=== PATIENT | female | born 1975 | race Caucasian/White ===

== ENCOUNTER → 2023-01-12 | Outpatient (CLI) | payer SELFPAY ==
--- NOTE | 2023-01-12 15:45 | RAD_ITS ---
INDICATION: KUB EXAMINATION/TECHNIQUE: X-RAY - XR Abdomen 1 View COMPARISON: None FINDINGS: BOWEL GAS PATTERN: Non-obstructive. No bowel or stomach distention. FREE AIR: Not assessed on a single supine view. ORGANOMEGALY: Not seen. CALCIFICATIONS: Multiple calcifications project over the left mid renal pole measuring 2 to 4 mm. Additional questionable 5 mm stone in the left lower renal pole. Single 3 mm calcification projecting over the right upper renal pole. LOWER CHEST: No acute pathology. BONES AND SOFT TISSUES: No acute pathology. RAD/Abdomen Single View IMPRESSION: Multiple small bilateral renal stones as described above. Electronically Signed: Rinku Camacho MD at 23:21 EDT ,
== END | disposition home or self-care (01) ==
PROVIDERS: Referring Provider Urology; Visit Provider Urology
DX: N20.0 Calculus of kidney (principal)
CPT/HCPCS: 74018

== ENCOUNTER → 2023-01-19 | Outpatient (CLI) | payer SELFPAY | END | disposition home or self-care (01) | LOC: LABSPEC 15:44 | PROVIDERS: Referring Provider Urology; Visit Provider Urology | DX: N39.0 Urinary tract infection, site not specified (principal) | CPT/HCPCS: 87086 ==

== ENCOUNTER 2023-01-25 09:44 | Day surgery (SDC) | payer SELFPAY ==
[2023-01-25 10:51] LABS: Internal QC Validated? YES +Cl - CLEAR BKGD; Pregnancy, Urine Negative Negative
[2023-01-25] MEDS: Lactated Ringers 1,000 ML 15 ML IV (10:58)
[2023-01-25 10:59] VITALS: BP 113/72; PULSE 75; RESP 18; TEMP 36.4; O2SAT 100; BMI 24.4
[2023-01-25] MEDS: Cefazolin 2 GM in 0.9% Normal Saline 100 ML IV (12:38)
--- NOTE | 2023-01-25 12:55 | PCM.OPRPT ---
Problems Associated Problem List Diagnoses (1) Kidney stones: Report of Operation Date of Procedure: 01/25/23 Pre-Operative Diagnosis: Left renal stones Post-Operative Diagnosis: Same Surgery/Procedure Performed:: Left renal extracorporal shockwave lithotripsy Surgeon: Jane Bermudez Type of Anesthesia: General Description of Procedure: The patient is a 47-year-old female with a left renal stone cluster seen on CT scan done for right flank pain. She subsequently passed her right ureteral stones and now presents for definitive management of her remaining left renal stones. Informed consent was obtained. The patient was taken to the operating room and placed on the operating room table. Anesthesia monitored the head, neck, airway, IV access and vital signs throughout the case. Once anesthesia was appropriately administered, the patient was aligned with the lithotripter. The stones were easily visualized. 3000 shocks were applied to the stones without complication. The stones appeared to be well fragmented at the conclusion of the case. She does have a visible 5mm stone in the right kidney. The patient was then awakened and taken to the recovery room in good condition. There were no complications during this procedure. Complications None Admit VTE Documentation VTE Present on Admission: Yes VTE Mechan Device Prophylaxis: SCD's VTE Pharm Prophylaxis ordered?: No Reason prophylaxis not ordered:: Treatment Not Indicated
--- NOTE | 2023-01-25 12:57 | DCINST_ITS ---
Discharge Instructions Diet Discharge Diet: No restrictions Activity Discharge Activity: Return to Normal Activity Dressing / Incision Call your doctor if you observe: Fever of 101 or Higher, Inability to urinate and Inability to have a bowel movement Follow Up Care Please Follow Up With: Jane Bermudez MD When: The office will call the patient to set up follow-up appointment Test Results: Test results from this visit will be discussed in further detail at your follow- up appointment, if applicable. Discharge Plan Admission Attending Provider: Jane Bermudez Primary Care Provider: Katerine Adames Discharge Orders/Prescriptions Prescriptions: New oxycodone-acetaminophen [Percocet] 5-325 mg tablet 1 tab PO Q8H PRN (Reason: pain) 3 Days Qty: 10 0RF cephalexin [cephalexin] 500 mg capsule 500 mg PO Q12 3 Days Qty: 6 0RF Continued famotidine [Acid Controller] 10 mg tablet 10 mg PO DAILY licorice root (G.glabra) 445 mg capsule 500 mg PO DAILY slippery elm bark 400 mg capsule 400 mg PO DAILY ascorbic acid (vitamin C) [Vitamin C] 500 mg capsule, extended release 1,000 mg PO DAILY Referrals / Follow Up: Katerine Adames PA [Primary Care Provider] - Disposition Disposition (needs filled in before D/C Order can be placed): Home, Self Care
[2023-01-25 13:42] VITALS: BP 113/72; BP 117/77; PULSE 78; RESP 16; TEMP 36.2; O2SAT 100
[2023-01-25 13:45] VITALS: BP 112/73; BP 113/72; PULSE 78; RESP 16; O2SAT 100
[2023-01-25 14:00] VITALS: BP 112/74; BP 113/72; PULSE 73; RESP 16; O2SAT 100
[2023-01-25 14:18] VITALS: BP 108/76; BP 113/72; PULSE 69; RESP 16; TEMP 36.5; O2SAT 100
[2023-01-25 14:46] VITALS: BP 113/72
== END 2023-01-25 15:03 | disposition home or self-care (01) ==
LOC: SDC 09:55 → AC 10:14
PROVIDERS: Anesthesiology; Referring Provider Urology; Visit Provider Urology
PROC: (CPT 50590; principal; 2023-01-25 11:25)
DX: N20.0 Calculus of kidney (principal); K21.9 Gastro-esophageal reflux disease without esophagitis
CPT/HCPCS: 50590; 81025; J7120; J2405

== ENCOUNTER → 2023-03-16 | Outpatient (CLI) | payer SELFPAY | END | disposition home or self-care (01) | PROVIDERS: Referring Provider Urology; Visit Provider Urology | DX: N39.0 Urinary tract infection, site not specified (principal) | CPT/HCPCS: 87086; 87088 ==

== ENCOUNTER 2023-03-22 08:27 | Day surgery (SDC) | payer SELFPAY ==
[2023-03-22] VITALS (9 sets, daily range): BP systolic 96–123; BP diastolic 72–89; PULSE 50–76; RESP 16; TEMP 36.2–36.8; O2SAT 99–100; BMI 23.1
[2023-03-22 09:04] LABS: Internal QC Validated? YES +Cl - CLEAR BKGD; Record Kit Lot#,Urine Preg HCG0000667200
[2023-03-22 09:07] LABS: Pregnancy, Urine Negative Negative
[2023-03-22] MEDS: Lactated Ringers 1,000 ML 15 ML IV ×2 (09:11→12:33)
[2023-03-22] MEDS: Cefazolin 2 GM in 0.9% Normal Saline 100 ML IV (10:51)
--- NOTE | 2023-03-22 11:30 | DCINST_ITS ---
Discharge Instructions Diet Discharge Diet: No restrictions Activity Discharge Activity: Return to Normal Activity Dressing / Incision Call your doctor if you observe: Fever of 101 or Higher, Inability to urinate and Inability to have a bowel movement Follow Up Care Please Follow Up With: Jane Bermudez MD When: In approximately 4 to 5 weeks, 2 weeks after submitting urine for 24-hour urinalysis, she will need a KUB prior to the appointment Test Results: Test results from this visit will be discussed in further detail at your follow- up appointment, if applicable. Discharge Plan Admission Attending Provider: Jane Bermudez Primary Care Provider: Katerine Adames Discharge Orders/Prescriptions Prescriptions: New cephalexin [cephalexin] 500 mg capsule 500 mg PO Q12 3 Days Qty: 6 0RF Continued famotidine [Acid Controller] 10 mg tablet 10 mg PO QHS licorice root (G.glabra) 445 mg capsule 500 mg PO DAILY slippery elm bark 400 mg capsule 400 mg PO DAILY ascorbic acid (vitamin C) [Vitamin C] 500 mg capsule, extended release 1,000 mg PO DAILY Referrals / Follow Up: Katerine Adames PA [Primary Care Provider] - Disposition Disposition (needs filled in before D/C Order can be placed): Home, Self Care
--- NOTE | 2023-03-22 11:31 | PCM.OPRPT ---
Report of Operation Date of Procedure: 03/22/23 Pre-Operative Diagnosis: Right renal stone Post-Operative Diagnosis: Same Surgery/Procedure Performed:: Right renal extracorporal shockwave lithotripsy Description of Procedure: The patient is a 47-year-old female found to have bilateral renal stones. She recently underwent a left extracorporal shockwave lithotripsy and now presents for treatment of the right side. Informed consent was obtained. The patient was taken to the operating room and placed on the lithotripsy table. Anesthesia monitored the head, neck, airway, IV access and vital signs throughout the case. Once anesthesia was apparently administered, the patient was aligned with the lithotripsy machine. The left side showed a 2 to 3 mm stone remaining. The right side easily visualized a 5 mm calculus. 2500 shocks were applied until the right side stone was no longer visible. The patient was then awakened and taken to the recovery room in good condition. There were no complications during this procedure. Complications None Admit VTE Documentation VTE Present on Admission: Yes VTE Mechan Device Prophylaxis: SCD's VTE Pharm Prophylaxis ordered?: No Reason prophylaxis not ordered:: Treatment Not Indicated
== END 2023-03-22 13:57 | disposition home or self-care (01) ==
LOC: SDC 08:36 → AC 08:39
PROVIDERS: Anesthesiology; Referring Provider Urology; Visit Provider Urology
PROC: (CPT 50590; principal; 2023-03-22 09:50)
DX: N20.0 Calculus of kidney (principal); K21.9 Gastro-esophageal reflux disease without esophagitis; Z87.442 Personal history of urinary calculi
CPT/HCPCS: 50590; 00873; 81025; J7120; J2405

== ENCOUNTER → 2023-05-04 | Outpatient (CLI) | payer SELFPAY ==
--- NOTE | 2023-05-04 10:03 | RAD_ITS ---
STUDY: X-RAY - ABDOMEN/PELVIS REASON FOR EXAM: Female, 47 years old. Renal calculi. Follow-up. TECHNIQUE: Single AP view of the abdomen / pelvis on 2 images. COMPARISON: January 12, 2023 FINDINGS: Normal visualized lung bases. Normal bowel gas pattern with substantial overlying bowel gas and feces. 2 mm in diameter calcification projected over the lower pole of the left kidney. No abnormal calcifications seen projected over the right kidney. Much of the right kidney is, however, obscured by feces and gas. Normal soft tissue structures. Normal visualized osseous structures. RAD/Abdomen Single View IMPRESSION: Small left renal calculus. No other abnormality. See discussion above. Electronically Signed: Norris Valle MD at 13:40 EDT ,
== END | disposition home or self-care (01) ==
LOC: MTRAD 10:02
PROVIDERS: Referring Provider Urology; Visit Provider Urology
DX: N20.0 Calculus of kidney (principal)
CPT/HCPCS: 74018

== ENCOUNTER → 2024-04-30 | Outpatient (CLI) | payer SELFPAY ==
--- NOTE | 2024-04-30 10:16 | RAD_ITS ---
EXAM: XR ABDOMEN, 1 VIEW CLINICAL INDICATION: KUB- STONES TECHNIQUE: Frontal supine view of the abdomen/pelvis. COMPARISON: 05/04/2023 FINDINGS: GASTROINTESTINAL TRACT: Moderate colonic stool and gas. Non-obstructive. No bowel or stomach distention. ORGANS: Calcific densities projecting over the inferior aspect of the left renal silhouette measuring up to approximately 6 mm in aggregate and similar to the prior examination. Calcification in the right upper quadrant may be at the periphery of the right renal silhouette or in expected location of the gallbladder. No organomegaly. BONES/JOINTS: No acute pathology. SOFT TISSUES: No acute pathology. RAD/Abdomen Single View IMPRESSION: 1. Moderate colonic stool and gas. No evidence of bowel obstruction. 2. Calcific densities projecting over the inferior aspect of the left renal silhouette measuring up to approximately 6 mm in aggregate and similar to the prior examination. Calcification in the right upper quadrant may be at the periphery of the right renal silhouette or in expected location of the gallbladder. Regardless, findings are unchanged compared to the prior exam. Electronically Signed: Gab De La Torre DO at 22:09 EDT ,
== END | disposition home or self-care (01) ==
LOC: MTRAD 10:15
PROVIDERS: Referring Provider Urology; Visit Provider Urology
DX: N20.0 Calculus of kidney (principal)
CPT/HCPCS: 74018